=== PATIENT | male | born 1990 | race Caucasian/White ===

== ENCOUNTER 2017-05-17 13:13 | Emergency (ER) | payer OTHER ==
--- NOTE | ~2017-05-17 | CR72 ---
[facility] A Service of [facility] & [facility] RADIOLOGY TEXT RESULTS PATIENT: SANJEEV DUBON LOCATION: SED : 88 UNIT #: [id number] AGE: [address]: John Willett MD SEX: M ORDER DR: [id number] [place] [id number] E MR#: [id number] Acc #: [id number] NAME: SANJEEV DUBON : 1990 SEX: M STUDY DATE/TIME: 05/17/2017 13:25 UNIT: SED ROOM: STUDY DESCRIPTION: CR Chest Single View Portable Attending Physician: John Willett M.D. Ordering Physician: John Willett M.D. Primary Care Physician: No Primary Care Physician MEDICAL IMAGING REPORT This report is preliminary unless electronic signature is present. EXAM Portable chest 05/17/2017 HISTORY 27-year-old male chest pain past 20-30 minutes. Patient indicates chest mid sternal with diaphoresis, fever, congestion. Patient is smoker. COMPARISON Chest none. FINDINGS AP upright portable chest demonstrates normal cardiac size and configuration. Hilar structures and mediastinal contours are preserved. Bilateral lungs are expanded and clear. IMPRESSION Negative chest. No acute finding. Dictated by... Dominick Betancourt M.D. THIS IS AN ELECTRONICALLY VERIFIED REPORT Dominick Betancourt M.D. at 05/18/2017 8:08 AM LEOPOLDO/karen TD: 05/17/2017 17:11 JOB #: [id number] MEDICAL IMAGING REPORT Page 1 of 1
--- NOTE | ~2017-05-17 | EKG ---
PATIENT: SANJEEV DUBON UNIT #: [id number] Ventricular Rate: 80 BPM Atrial Rate: 80 BPM P-R Interval: 198 ms QRS Duration: 108 ms Q-T Interval: 374 ms QTC Calculation(Bezet): 431 ms P [place]: 65 degrees Calculated R [place]: 70 degrees Calculated T [place]: 70 degrees Diagnosis Line: Normal sinus rhythm Diagnosis Line: Normal ECG Diagnosis Line: No previous ECGs available Diagnosis Line: Confirmed by BOUCHRA SHAVER MD ([id number]) on 05/20/2017 Diagnosis Line: 4:35:24 PM INTERPRETING MD: SIVAKUMAR JUNIOR
== END 2017-05-17 14:05 | disposition home or self-care (01) ==
LOC: SED 13:13
DX: R07.89 Other chest pain (principal); R11.2 Nausea with vomiting, unspecified; R19.7 Diarrhea, unspecified; F17.210 Nicotine dependence, cigarettes, uncomplicated
CPT/HCPCS: 71010; 93005; 99285